=== PATIENT | male | born 1965 | race Caucasian/White ===

== ENCOUNTER 2017-05-01 07:09 | Inpatient (IN) | payer OTHER ==
[~2017-05-01 07:09] MED LIST: SUGAMMADEX SODIUM 200 MG/2 ML VIAL IV
[2017-05-01] MEDS ORDERED: CEFAZOLIN 1 GM/50 ML (PMX) 50 ML IVPB (09:00)
[2017-05-01] MEDS ORDERED: NEOSTIGMINE 3 MG/3 ML SYRINGE (11:01)
[2017-05-01] MEDS ORDERED: FENTAnyl 50 MCG/ML VIAL (11:01)
[2017-05-01] MEDS ORDERED: ONDANSETRON 4 MG INJ ×2 (11:01→13:44)
[2017-05-01] MEDS ORDERED: CEFAZOLIN 1 GM INJ (11:01)
[2017-05-01] MEDS ORDERED: MIDAZOLAM 1 MG/ML 2 ML INJ (11:01)
[2017-05-01] MEDS ORDERED: ROCURONIUM 50 MG INJ (11:01)
[2017-05-01] MEDS ORDERED: PROPOFOL 20 ML (11:01)
[2017-05-01] MEDS ORDERED: DEXAMETHASONE 4 MG/ML 1 ML INJ (11:02)
[2017-05-01] MEDS ORDERED: morphine SULFATE/PF (10 MG/10 ML) INJ (11:03)
[2017-05-01] MEDS: POLYMYXIN/BACITRACIN 1L IRRIG (12:10)
[2017-05-01] MEDS: NEOMYC/POLYMYX/BACIT 30 GM OINT (12:16)
[2017-05-01] MEDS ORDERED: METOCLOPRAMIDE 10 MG INJ (13:58)
[2017-05-01] MEDS ORDERED: HYDROmorphONE (0.2 MG/ML) 10ML SYG IV ×5 (14:00→15:30)
[2017-05-01] MEDS: FENTAnyl 50 MCG/ML VIAL IV ×3 (14:20→15:01)
[2017-05-01] MEDS ORDERED: MEPERIDINE 25 MG INJ (14:30)
[2017-05-01] MEDS: ONDANSETRON 4 MG INJ IV ×2 (14:33→22:02)
[2017-05-01] MEDS: METOCLOPRAMIDE 10 MG INJ IV (14:41)
[2017-05-01 14:42] LABS: HEMATOCRIT 34.3 % (42.0-52.0); HEMOGLOBIN 11.9 g/dl (14.0-18.0)
[2017-05-01 15:01] LABS: ANION GAP 15 (8-16); CARBON DIOXIDE 22 mmol/L (21-31); CHLORIDE 110 mmol/L (97-110); GLUCOSE 107 mg/dl (70-220)
[2017-05-01 15:26] LABS: BLOOD UREA NITROGEN 12 mg/dl (7-20); CALCIUM 8.7 mg/dl (8.4-10.2); CREATININE 0.77 mg/dl (0.61-1.24); POTASSIUM 3.8 mmol/L (3.5-5.1); SODIUM 143 mmol/L (135-144)
[2017-05-01] MEDS ORDERED: LABETALOL HCL 20MG INJ IV (15:30)
[2017-05-01] MEDS ORDERED: FENTAnyl 50 MCG/ML VIAL IV ×3 (15:30)
[2017-05-01] MEDS ORDERED: ALBUTEROL 0.083% (NEB) 2.5 MG/3 ML AMP HHN (15:30)
[2017-05-01] MEDS ORDERED: EPHEDrine SULFATE 50 MG/5 ML SYG IV (15:30)
[2017-05-01] MEDS ORDERED: TRIMETHOBENZAMIDE 100 MG/ML VIAL IM (15:30)
[2017-05-01] MEDS ORDERED: OXYCODONE/ACETAMINOPHEN (5/325) TAB PO ×2 (15:30)
[2017-05-01] MEDS ORDERED: MIDAZOLAM 1 MG/ML 2 ML INJ IV (15:30)
[2017-05-01] MEDS ORDERED: DIPHENHYDRAMINE 50 MG INJ IV (15:30)
[2017-05-01] MEDS ORDERED: MEPERIDINE 25 MG INJ IV (15:30)
[2017-05-01] MEDS ORDERED: hydrALAzine 20 MG INJ IV (15:30)
[2017-05-01] MEDS ORDERED: IPRATROPIUM (NEB) 0.5 MG/2.5 ML AMP HHN (15:30)
[2017-05-01] MEDS ORDERED: ONDANSETRON 4 MG INJ IV (15:30)
[2017-05-01] MEDS: HYDROmorphONE (0.2 MG/ML) 10ML SYG IV (16:29)
[2017-05-01] MEDS: CEFAZOLIN 1 GM/50 ML (PMX) 50 ML IVPB ×2 (16:46→21:00)
[2017-05-01] MEDS: morphine 2 MG INJ IV ×2 (17:45→20:55)
[2017-05-01] MEDS: LACTATED RINGER'S 1,000 ML IV (18:37)
[2017-05-01] MEDS: KETOROLAC 30 MG INJ IV (18:37)
[2017-05-01 19:04] LABS: ADD MAN DIFF? NO
[2017-05-01 19:06] LABS: ABNORMAL IP MESSAGE 1; BASOPHILS % 0.1 % (0.0-2.0); HEMATOCRIT 34.3 % (42.0-52.0); HEMOGLOBIN 11.8 g/dl (14.0-18.0); LYMPHOCYTES # 0.3 10^3/ul (0.8-2.9); MEAN CORPUSCULAR HGB CONC 34.4 g/dl (32.0-37.0); MONOCYTE # 0.4 10^3/ul (0.3-0.9); MONOCYTES % 2.1 % (0.0-11.0); NEUTROPHIL # 15.8 10^3/ul (1.6-7.5); NEUTROPHILS % 95.4 % (39.0-77.0); PLATELET COUNT 182 10^3/UL (140-415); POSITIVE DIFF @See below; RED BLOOD COUNT 3.81 10^6/ul (4.70-6.10); RED CELL DISTRIBUTION WIDTH 12.3 % (11.5-14.5)
[2017-05-01 19:06] LABS: WHITE BLOOD COUNT 16.6 10^3/ul (4.8-10.8)
[2017-05-01 19:36] LABS: ANION GAP 12 (8-16); BLOOD UREA NITROGEN 12 mg/dl (7-20); CALCIUM 9.2 mg/dl (8.4-10.2); CARBON DIOXIDE 27 mmol/L (21-31); CHLORIDE 107 mmol/L (97-110); CREATININE 0.72 mg/dl (0.61-1.24); GLUCOSE 145 mg/dl (70-220); POTASSIUM 4.1 mmol/L (3.5-5.1); SODIUM 142 mmol/L (135-144)
[2017-05-01] MEDS: METHIMAZOLE 5 MG TAB PO (21:44)
[2017-05-01] MEDS: ASPIRIN 81 MG TAB PO (22:14)
[2017-05-02 00:42] LABS: ADD MAN DIFF? NO
[2017-05-02 00:46] LABS: WHITE BLOOD COUNT 10.5 10^3/ul (4.8-10.8)
[2017-05-02 00:46] LABS: ABNORMAL IP MESSAGE 1; BASOPHILS % 0.2 % (0.0-2.0); HEMATOCRIT 32.4 % (42.0-52.0); HEMOGLOBIN 11.3 g/dl (14.0-18.0); LYMPHOCYTES # 0.3 10^3/ul (0.8-2.9); LYMPHOCYTES % 2.9 % (15.0-51.0); MEAN CORPUSCULAR HEMOGLOBIN 31.3 pg (29.0-33.0); MEAN CORPUSCULAR HGB CONC 34.9 g/dl (32.0-37.0); MEAN CORPUSCULAR VOLUME 89.8 fl (82.0-101.0); MEAN PLATELET VOLUME 10.2 fl (7.4-10.4); MONOCYTE # 0.4 10^3/ul (0.3-0.9); MONOCYTES % 3.4 % (0.0-11.0); NEUTROPHIL # 9.7 10^3/ul (1.6-7.5); NEUTROPHILS % 93.1 % (39.0-77.0); PLATELET COUNT 172 10^3/UL (140-415); POSITIVE DIFF @See below; RED BLOOD COUNT 3.61 10^6/ul (4.70-6.10); RED CELL DISTRIBUTION WIDTH 12.1 % (11.5-14.5)
[2017-05-02] MEDS: KETOROLAC 30 MG INJ IV (02:11)
[2017-05-02] MEDS: LACTATED RINGER'S 1,000 ML IV (02:11)
[2017-05-02] MEDS: morphine 2 MG INJ IV ×6 (02:18→18:27)
[2017-05-02] MEDS: OXYCODONE/ACETAMINOPHEN (10/325) TAB PO ×2 (05:26→13:32)
[2017-05-02] MEDS: CEFAZOLIN 1 GM/50 ML (PMX) 50 ML IVPB (05:26)
[2017-05-02] MEDS: ONDANSETRON 4 MG INJ IV (06:36)
[2017-05-02] MEDS: METHIMAZOLE 5 MG TAB PO ×3 (08:46→20:39)
[2017-05-02] MEDS: ASPIRIN 81 MG TAB PO (08:46)
[2017-05-02 11:36] LABS: ADD MAN DIFF? NO
[2017-05-02 11:44] LABS: BASOPHILS % 0.3 % (0.0-2.0); EOSINOPHILS % 0.1 % (0.0-7.0); HEMOGLOBIN 10.7 g/dl (14.0-18.0); LYMPHOCYTES # 1.2 10^3/ul (0.8-2.9); MEAN CORPUSCULAR HGB CONC 34.5 g/dl (32.0-37.0); MEAN CORPUSCULAR VOLUME 89.9 fl (82.0-101.0); MEAN PLATELET VOLUME 10.9 fl (7.4-10.4); MONOCYTE # 1.1 10^3/ul (0.3-0.9); MONOCYTES % 9.7 % (0.0-11.0); NEUTROPHIL # 8.6 10^3/ul (1.6-7.5); NEUTROPHILS % 78.4 % (39.0-77.0); PLATELET COUNT 191 10^3/UL (140-415); RED BLOOD COUNT 3.45 10^6/ul (4.70-6.10); RED CELL DISTRIBUTION WIDTH 12.2 % (11.5-14.5)
[2017-05-02 11:44] LABS: WHITE BLOOD COUNT 10.9 10^3/ul (4.8-10.8)
[2017-05-02 12:18] LABS: PHOSPHORUS 3.4 mg/dl (2.5-4.9)
[2017-05-02 12:18] LABS: MAGNESIUM 1.8 mg/dl (1.7-2.5)
[2017-05-02 12:19] LABS: ANION GAP 15 (8-16); BLOOD UREA NITROGEN 10 mg/dl (7-20); CALCIUM 9.3 mg/dl (8.4-10.2); CARBON DIOXIDE 27 mmol/L (21-31); CHLORIDE 102 mmol/L (97-110); CREATININE 0.72 mg/dl (0.61-1.24); GLUCOSE 102 mg/dl (70-220); POTASSIUM 3.9 mmol/L (3.5-5.1); SODIUM 140 mmol/L (135-144)
[2017-05-02] MEDS: HYDROCODONE/APAP (10/325) TAB PO (20:02)
[2017-05-02] MEDS: ZOLPIDEM 5 MG TAB PO (21:31)
[2017-05-03] MEDS: OXYCODONE/ACETAMINOPHEN (10/325) TAB PO ×4 (00:57→19:46)
[2017-05-03] MEDS: ONDANSETRON 4 MG INJ IV ×2 (04:59→21:33)
[2017-05-03] MEDS: morphine 2 MG INJ IV ×3 (04:59→12:34)
[2017-05-03 05:37] LABS: ADD MAN DIFF? NO
[2017-05-03 05:47] LABS: BASOPHILS % 0.3 % (0.0-2.0); EOSINOPHILS % 0.1 % (0.0-7.0); HEMATOCRIT 30.6 % (42.0-52.0); HEMOGLOBIN 10.5 g/dl (14.0-18.0); LYMPHOCYTES # 0.9 10^3/ul (0.8-2.9); LYMPHOCYTES % 8.5 % (15.0-51.0); MEAN CORPUSCULAR HEMOGLOBIN 31.2 pg (29.0-33.0); MEAN CORPUSCULAR HGB CONC 34.3 g/dl (32.0-37.0); MEAN CORPUSCULAR VOLUME 90.8 fl (82.0-101.0); MEAN PLATELET VOLUME 10.8 fl (7.4-10.4); MONOCYTES % 9.3 % (0.0-11.0); NEUTROPHIL # 8.5 10^3/ul (1.6-7.5); NEUTROPHILS % 81.5 % (39.0-77.0); PLATELET COUNT 182 10^3/UL (140-415); RED BLOOD COUNT 3.37 10^6/ul (4.70-6.10); RED CELL DISTRIBUTION WIDTH 12.1 % (11.5-14.5)
[2017-05-03 05:47] LABS: WHITE BLOOD COUNT 10.4 10^3/ul (4.8-10.8)
[2017-05-03 06:19] LABS: ANION GAP 14 (8-16); BLOOD UREA NITROGEN 9 mg/dl (7-20); CALCIUM 9.2 mg/dl (8.4-10.2); CARBON DIOXIDE 28 mmol/L (21-31); CHLORIDE 101 mmol/L (97-110); CREATININE 0.68 mg/dl (0.61-1.24); GLUCOSE 108 mg/dl (70-220); POTASSIUM 3.9 mmol/L (3.5-5.1); SODIUM 139 mmol/L (135-144)
[2017-05-03] MEDS: ASPIRIN 81 MG TAB PO (09:38)
[2017-05-03] MEDS: METHIMAZOLE 5 MG TAB PO ×3 (09:38→21:33)
[2017-05-03] MEDS ORDERED: DOCUSATE SODIUM 100 MG CAP PO (14:30)
[2017-05-03] MEDS ORDERED: BISACODYL (EC) 5 MG TAB PO (15:00)
[2017-05-03] MEDS ORDERED: HYDROCODONE/APAP (10/325) TAB PO (17:00)
[2017-05-04 08:43] LABS: ADD MAN DIFF? NO
[2017-05-04] MEDS: METHIMAZOLE 5 MG TAB PO ×3 (08:46→20:12)
[2017-05-04] MEDS: ASPIRIN 81 MG TAB PO (08:46)
[2017-05-04 08:48] LABS: WHITE BLOOD COUNT 10.7 10^3/ul (4.8-10.8)
[2017-05-04 08:48] LABS: ABNORMAL IP MESSAGE 1; BASOPHILS % 0.4 % (0.0-2.0); HEMATOCRIT 32.8 % (42.0-52.0); HEMOGLOBIN 11.4 g/dl (14.0-18.0); LYMPHOCYTES # 0.6 10^3/ul (0.8-2.9); LYMPHOCYTES % 5.4 % (15.0-51.0); MEAN CORPUSCULAR HGB CONC 34.8 g/dl (32.0-37.0); MEAN CORPUSCULAR VOLUME 89.1 fl (82.0-101.0); MEAN PLATELET VOLUME 10.4 fl (7.4-10.4); MONOCYTE # 1.1 10^3/ul (0.3-0.9); NEUTROPHILS % 83.7 % (39.0-77.0); PLATELET COUNT 200 10^3/UL (140-415); POSITIVE DIFF @See below; RED BLOOD COUNT 3.68 10^6/ul (4.70-6.10); RED CELL DISTRIBUTION WIDTH 11.7 % (11.5-14.5)
[2017-05-04] MEDS: OXYCODONE/ACETAMINOPHEN (10/325) TAB PO ×4 (08:51→22:37)
[2017-05-04 09:07] LABS: ANION GAP 15 (8-16); BLOOD UREA NITROGEN 8 mg/dl (7-20); CALCIUM 9.4 mg/dl (8.4-10.2); CARBON DIOXIDE 28 mmol/L (21-31); CHLORIDE 98 mmol/L (97-110); CREATININE 0.65 mg/dl (0.61-1.24); GLUCOSE 96 mg/dl (70-220); POTASSIUM 3.8 mmol/L (3.5-5.1); SODIUM 137 mmol/L (135-144)
[2017-05-04] MEDS: ONDANSETRON 4 MG INJ IV (17:16)
[2017-05-05] MEDS: ONDANSETRON 4 MG INJ IV ×3 (03:11→16:51)
[2017-05-05] MEDS: OXYCODONE/ACETAMINOPHEN (10/325) TAB PO ×3 (06:16→16:37)
[2017-05-05] MEDS: METHIMAZOLE 5 MG TAB PO ×2 (08:49→12:59)
[2017-05-05] MEDS: ASPIRIN 81 MG TAB PO (08:49)
[2017-05-05 10:08] LABS: ADD MAN DIFF? NO
[2017-05-05 10:11] LABS: WHITE BLOOD COUNT 9.2 10^3/ul (4.8-10.8)
[2017-05-05 10:11] LABS: BASOPHILS % 0.4 % (0.0-2.0); EOSINOPHILS # 0.1 10^3/ul (0.0-0.5); EOSINOPHILS % 0.5 % (0.0-7.0); HEMATOCRIT 31.9 % (42.0-52.0); HEMOGLOBIN 11.3 g/dl (14.0-18.0); LYMPHOCYTES % 11.3 % (15.0-51.0); MEAN CORPUSCULAR HGB CONC 35.4 g/dl (32.0-37.0); MEAN CORPUSCULAR VOLUME 87.4 fl (82.0-101.0); MEAN PLATELET VOLUME 10.2 fl (7.4-10.4); MONOCYTE # 1.1 10^3/ul (0.3-0.9); MONOCYTES % 12.1 % (0.0-11.0); NEUTROPHILS % 75.5 % (39.0-77.0); PLATELET COUNT 260 10^3/UL (140-415); RED BLOOD COUNT 3.65 10^6/ul (4.70-6.10); RED CELL DISTRIBUTION WIDTH 11.9 % (11.5-14.5)
[2017-05-05 10:34] LABS: ANION GAP 15 (8-16); BLOOD UREA NITROGEN 8 mg/dl (7-20); CALCIUM 9.4 mg/dl (8.4-10.2); CARBON DIOXIDE 29 mmol/L (21-31); CHLORIDE 97 mmol/L (97-110); CREATININE 0.67 mg/dl (0.61-1.24); GLUCOSE 98 mg/dl (70-220); POTASSIUM 3.7 mmol/L (3.5-5.1); SODIUM 137 mmol/L (135-144)
== END 2017-05-05 17:39 | disposition home health service (06) | DRG 470 ==
LOC: REC 07:09 → MS1 17:05
PROC: 0SRC0J9 Replacement of Right Knee Joint with Synthetic Substitute, Cemented, Open Approach (ICD-10-PCS; principal; 2017-05-01 10:30)
PROC: 0QPG04Z Removal of Internal Fixation Device from Right Tibia, Open Approach (ICD-10-PCS; 2017-05-01 10:30)
DX: M17.31 Unilateral post-traumatic osteoarthritis, right knee (principal); E05.90 Thyrotoxicosis, unspecified without thyrotoxic crisis or storm; Z79.899 Other long term (current) drug therapy; Z87.81 Personal history of (healed) traumatic fracture; Z98.890 Other specified postprocedural states
CPT/HCPCS: 73562; 80048; 83735; 84100; 85014; 85018; 85025; 87086; 88300; 88304; 88311; 97110; 97116; 97163; 97530